=== PATIENT | male | born 1970 | race African-American/Black ===

== ENCOUNTER 2018-03-04 14:39 | Inpatient (IN) | payer MEDICAID ==
[~2018-03-04] VITALS: Ht 172.7 cm; Wt 109.8 kg
[2018-03-04] VITALS: BP 113/75
[~2018-03-04 14:39] MED LIST: METFORMIN
[2018-03-04] MEDS ORDERED: IBUPROFEN 400MG TABLET PO ONE (15:00)
[2018-03-04] MEDS ORDERED: ENOXAPARIN 100MG/ML SYR SUBCUT ONE (17:30)
[2018-03-04 17:53] LABS: CHLORIDE 107 mEq/L (98-107)
[2018-03-04 17:55] LABS: INR 1.1; PROTHROMBIN TIME 11.4 sec (9.4-11.6)
[2018-03-04 17:57] LABS: HEMATOCRIT. 44.4 % (42.0-52.0); HEMOGLOBIN. 14.7 g/dL (14.0-18.0); RED BLOOD CELL COUNT 5.35 mill/uL (4.7-6.1)
[2018-03-04 17:58] LABS: BASOPHILS % 1.5 % (0.0-2.0); EOSINOPHILS % 2.1 % (0.0-5.0); LYMPHOCYTES % 38.1 % (20.0-50.0); MEAN CORPUSCULAR HEMOGLOBIN 27.5 pg (28.0-32.0); MEAN PLATELET VOLUME 8.4 fl (7.4-10.4); MONOCYTES % 7.5 % (2.0-8.0); NEUTROPHILS % 50.8 % (40.0-76.0); PLATELET 59 x1000/uL (130-400); RED CELL DISTRIBUTION WIDTH 14.6 % (11.6-14.6)
[2018-03-04 18:13] LABS: PARTIAL THROMBOPLASTIN TIME < 20.0 sec (23.4-31.0)
[2018-03-04 18:37] LABS: PLATELET ESTIMATE MARKEDLY DECREASED
[2018-03-04 20:00] VITALS: BP 121/77
[2018-03-04] MEDS ORDERED: ACETAMINOPHEN 325MG TABLET PO PRN (20:15)
[2018-03-04] MEDS ORDERED: MORPHINE SULFATE 4 MG/ML CPJ (NOT FOR IM USE) IV PRN (20:15)
[2018-03-04 20:33] VITALS: BP 121/77
[2018-03-05] VITALS: BP 113/75
[2018-03-05] MEDS ORDERED: APIX5TAB MT (02:09)
[2018-03-05 04:00] VITALS: BP 99/64
[2018-03-05 07:50] VITALS: BP 112/69
[2018-03-05] MEDS ORDERED: ENOXAPARIN 40MG/0.4ML SYR SUBCUT SCH (09:00)
[2018-03-05 10:44] LABS: EOSINOPHILS % 3.7 % (0.0-5.0); HEMATOCRIT. 40.9 % (42.0-52.0); HEMOGLOBIN. 13.6 g/dL (14.0-18.0); LYMPHOCYTES % 37.2 % (20.0-50.0); MEAN CORPUSCULAR HEMOGLOBIN 27.2 pg (28.0-32.0); MEAN CORPUSCULAR VOLUME 82.1 fL (80.0-94.0); MEAN PLATELET VOLUME 8.5 fl (7.4-10.4); MONOCYTES % 9.1 % (2.0-8.0); PLATELET 159 x1000/uL (130-400); RED BLOOD CELL COUNT 4.98 mill/uL (4.7-6.1); RED CELL DISTRIBUTION WIDTH 14.4 % (11.6-14.6)
[2018-03-05 11:25] LABS: CHLORIDE 108 mEq/L (98-107)
[2018-03-05 11:43] VITALS: BP 118/79
[2018-03-05] MEDS ORDERED: APIXABAN 5 MG TABLET PO SCH (12:15)
[2018-03-05 15:04] VITALS: BP 118/79
[2018-03-05 15:45] VITALS: BP 141/74
== END 2018-03-05 18:15 | disposition home or self-care (01) | DRG 197 ==
LOC: ER 15:53 → OBSVTOIN 18:11 → 6EST 18:11 → ENRESERV 18:37
PROVIDERS: ADMIT Internal Medicine; ATTEND Internal Medicine
DX: I82.90 Acute embolism and thrombosis of unspecified vein (principal); D69.6 Thrombocytopenia, unspecified; E11.9 Type 2 diabetes mellitus without complications; E66.9 Obesity, unspecified; Z86.718 Personal history of other venous thrombosis and embolism; Z68.36 Body mass index [BMI] 36.0-36.9, adult; Z79.84 Long term (current) use of oral hypoglycemic drugs
CPT/HCPCS: 36415; 71045; 80053; 85025; 85610; 85730; 93005; 93971; 96372; 99285; G0378; J1650

== ENCOUNTER 2020-12-20 20:09 | Emergency (ER) | payer MEDICAID, OTHER ==
[~2020-12-20] VITALS: Ht 175.3 cm; Wt 105.0 kg
[~2020-12-20 20:09] MED LIST changes: +APIX5TAB MT
[2020-12-20] MEDS ORDERED: ACETAMINOPHEN 325MG TABLET PO ONE (23:45)
[2020-12-20 23:51] VITALS: BP 117/64
[2020-12-21] MEDS ORDERED: TOPUD MT (00:49)
== END 2020-12-21 01:03 | disposition home or self-care (01) ==
LOC: ER 20:09
DX: M79.18 Myalgia, other site (principal)
CPT/HCPCS: 93971; 99284

== ENCOUNTER 2023-12-11 10:31 | Emergency (ER) | payer MEDICAID, OTHER ==
[~2023-12-11] VITALS: Ht 175.3 cm; Wt 105.0 kg
[~2023-12-11 10:31] MED LIST changes: +TOPUD MT
[2023-12-11 10:57] VITALS: O2SAT 99
[2023-12-11 11:35] LABS: BASOPHILS % 1.1 % (0.0-2.0); EOSINOPHILS % 1.8 % (0.0-5.0); HEMATOCRIT. 41.6 % (42.0-52.0); HEMOGLOBIN. 13.1 g/dL (14.0-18.0); LYMPHOCYTES % 31.4 % (20.0-50.0); MEAN CORPUSCULAR HGB CONC 31.4 g/dL (31.0-37.0); MEAN CORPUSCULAR VOLUME 85.9 fL (80.0-94.0); MEAN PLATELET VOLUME 8.6 fl (7.4-10.4); NEUTROPHILS % 58.7 % (40.0-76.0); PLATELET 157 x1000/uL (130-400); RED BLOOD CELL COUNT 4.85 mill/uL (4.7-6.1); RED CELL DISTRIBUTION WIDTH 14.9 % (11.6-14.6); WHITE BLOOD COUNT 4.6 x1000/uL (4.5-11.0)
[2023-12-11 11:56] LABS: ALANINE AMINOTRANSFERASE 18 IU/L (10-49); ALBUMIN 4.4 g/dL (3.2-4.8); ASPARTATE AMINOTRANSFERASE 16 IU/L (<34); CALCIUM 8.5 mg/dL (8.7-10.4); CARBON DIOXIDE 24 mEq/L (21-32); CHLORIDE 109 mEq/L (98-107); CREATININE 0.8 mg/dL (0.6-1.3); GLUCOSE 186 mg/dL (70-105); POTASSIUM 3.6 mEq/L (3.5-5.1); PROTEIN TOTAL 7.1 g/dL (6.0-8.3); SODIUM 140 mEq/L (136-145); UREA NITROGEN BLOOD 8 mg/dL (9-23)
[2023-12-11 12:57] LABS: TROPONIN I HIGH SENSITIVITY < 4 ng/L (3.0-53)
[2023-12-11 13:00] LABS: D-DIMER 0.5 mg/L FEU (<0.50); PARTIAL THROMBOPLASTIN TIME 25.1 sec (23.4-31.0); PROTHROMBIN TIME 10.9 sec (9.6-11.0)
[2023-12-11 13:10] LABS: CLARITY URINE CLEAR (CLEAR); COLOR URINE YELLOW (YELLOW); GLUCOSE URINE 2+ (NEGATIVE); KETONES URINE NEGATIVE (NEGATIVE); LEUKOCYTE ESTERASE URINE NEGATIVE (NEGATIVE); NITRITE URINE NEGATIVE (NEGATIVE); OCCULT BLOOD URINE NEGATIVE (NEGATIVE); PROTEIN URINE NEGATIVE (NEGATIVE); SPECIFIC GRAVITY URINE 1.022 (1.005-1.030); UROBILINOGEN URINE 0.2 E.U./dL (0.2-1.0)
[2023-12-11] MEDS: IBUPROFEN 600MG TABLET PO ONE (13:28)
[2023-12-11 13:32] LABS: BACTERIA URINE TRACE; SQUAMOUS EPITHELIAL CELL URINE NONE SEEN /lpf (RARE/1+); WBC URINE 0-2 /hpf (0-2)
[2023-12-11 13:33] LABS: RBC URINE 0-2 /hpf (0-2)
[2023-12-11 14:00] VITALS: BP 124/69; PULSE 65; RESP 18; TEMP 98
== END 2023-12-11 14:02 | disposition home or self-care (01) ==
LOC: ER 12:14
DX: K76.0 Fatty (change of) liver, not elsewhere classified (principal); E11.9 Type 2 diabetes mellitus without complications
CPT/HCPCS: 36415; 71045; 76705; 80053; 81003; 83880; 84484; 85025; 85379; 93005; 99285

== ENCOUNTER 2025-08-30 11:54 | Emergency (ER) | payer OTHER ==
[~2025-08-30] VITALS: Ht 175.3 cm; Wt 105.0 kg
[2025-08-30 12:04] VITALS: O2SAT 98
[2025-08-30 12:40] LABS: BASOPHILS % 1.6 % (0.0-2.0); EOSINOPHILS % 1.9 % (0.0-5.0); HEMATOCRIT. 42.8 % (42.0-52.0); HEMOGLOBIN. 13.9 g/dL (14.0-18.0); LYMPHOCYTES % 28.0 % (20.0-50.0); MEAN PLATELET VOLUME 8.7 fl (7.4-10.4); MONOCYTES % 6.6 % (2.0-8.0); NEUTROPHILS % 61.9 % (40.0-76.0); PLATELET 164 x1000/uL (130-400); RED BLOOD CELL COUNT 5.12 mill/uL (4.7-6.1); RED CELL DISTRIBUTION WIDTH 14.3 % (11.6-14.6)
[2025-08-30 13:05] LABS: CREATININE 1.0 mg/dL (0.6-1.3); UREA NITROGEN BLOOD 8 mg/dL (9-23)
[2025-08-30] MEDS: MECLIZINE 25MG TABLET PO ONE (13:06)
[2025-08-30 13:15] LABS: CLARITY URINE CLEAR (CLEAR); COLOR URINE YELLOW (YELLOW); GLUCOSE URINE 3+ (NEGATIVE); KETONES URINE NEGATIVE (NEGATIVE); LEUKOCYTE ESTERASE URINE NEGATIVE (NEGATIVE); NITRITE URINE NEGATIVE (NEGATIVE); OCCULT BLOOD URINE NEGATIVE (NEGATIVE); PH URINE 5.0 (4.5-8.0); PROTEIN URINE NEGATIVE (NEGATIVE); SPECIFIC GRAVITY URINE 1.034 (1.005-1.030); UROBILINOGEN URINE 0.2 E.U./dL (0.2-1.0)
[2025-08-30 13:32] LABS: BACTERIA URINE NONE SEEN; RBC URINE 0-2 /hpf (0-2); SQUAMOUS EPITHELIAL CELL URINE 1+ /lpf (RARE/1+); WBC URINE 0-2 /hpf (0-2); YEAST URINE NONE SEEN
[2025-08-30] MEDS ORDERED: FLUT9.9S BOTHNSTRLS (14:17)
[2025-08-30] MEDS ORDERED: MECL-299 MT (14:17)
[2025-08-30 14:28] VITALS: BP 149/87; PULSE 92; RESP 15; TEMP 37; O2SAT 99
== END 2025-08-30 14:29 | disposition home or self-care (01) ==
LOC: ER 11:54
DX: H81.393 Other peripheral vertigo, bilateral (principal); E11.9 Type 2 diabetes mellitus without complications; F10.90 Alcohol use, unspecified, uncomplicated; Z79.01 Long term (current) use of anticoagulants; Z79.84 Long term (current) use of oral hypoglycemic drugs; Z86.718 Personal history of other venous thrombosis and embolism; Y90.9 Presence of alcohol in blood, level not specified
CPT/HCPCS: 99284; 80048; 81003; 85025; 36415; 93005; J8597